=== PATIENT | female | born 1955 | race Caucasian/White ===

== ENCOUNTER → 2017-09-20 | Outpatient (CLI) | payer OTHER ==
[~2017-09-20] MED LIST: ACIDOPHILUS1 EAC3 PO; ALDACTONE25 MG PO; ASPIR 8181 MG PO; ASPIRIN325 PO; ATORVASTATIN CA40 MG PO; AUGMENTIN 875-1 EACH PO; AUGMENTIN 875875 MG PO; CARVEDILOL12.5 MG PO; CIPRO500 MG PO; D3 DOTS2000 UNIT PO; FISH OIL PO; FLAGYL500 MG PO; HUMALOG100 UNIT/2 SQ; HYDROCODONE-ACE15 ML PO; HYDROCODONE-AP1 EAC6 PO; KEFLEX500 M1 PO; LASIX 40 MG TAB40 M2 PO; LISINOPRIL10 MG PO; METFORMIN HCL500 MG PO; MIRALAX17 GM PO; NYSTATIN LIQUID PO; ONDANSETRON HCL4 M2 PO; PLAVIX 75 MG TA75 M1 PO; POTASSIUM20 PO; TRADJENTA5 MG; TRADJENTA5 MG PO; TYLENOL325 MG PO; VITAMIN D2000 UNIT PO; WELLBUTRIN SR150 MG PO; ZOFRAN ODT4 MG PO
== END ==
LOC: M.RAD 14:11
DX: M19.012 Primary osteoarthritis, left shoulder (principal); M19.011 Primary osteoarthritis, right shoulder; G89.29 Other chronic pain

== ENCOUNTER → 2017-11-02 | Outpatient (CLI) | payer OTHER | LOC: M.ULTRA 07:48 | DX: G45.9 Transient cerebral ischemic attack, unspecified (principal); R09.89 Other specified symptoms and signs involving the circulatory and respiratory systems ==

== ENCOUNTER → 2018-06-21 | Outpatient (CLI) | payer OTHER ==
--- NOTE | 2018-06-21 16:06 | 2DMMODE ---
[place] [address] 2 D/M-MODE ECHOCARDIOGRAM Name: ISAEL TIERNEY Room: [facility]#: [id number] Admission: 06/21/18 Attend Phys: Melissa Beard, Discharge: Date of : 53 Date of Service: 06/21/18 1606 Report #: [id number] THIS REPORT FOR: //name// APPROVED REPORT Study performed: 06/21/2018 09:33:25 EXAM: Comprehensive 2D, Doppler, and color-flow Echocardiogram Patient Location: Out-Patient BSA: 1.76 HR: 86 bpm BP: 100/65 mmHg Other Information Study Quality: Fair Indications Cardiomyopathy 2D Dimensions IVSd: 11.22 (7-11mm) LVOT Diam: 20.23 (18-24mm) LVDd: 45.26 mm PWd: 10.01 (7-11mm) Ascending Ao: 36.02 (22-36mm) LVDs: 35.28 (25-40mm) Aortic Root: 26.24 mm Volumes Left Atrial Volume (Systole) LA ESV Index: 20.30 mL/m2 Aortic Valve AoV Peak Mahin.: 1.00 m/s AO Peak Gr.: 3.97 mmHg LVOT Max P.11 mmHg AO Mean Gr.: 2.17 mmHg LVOT Mean P.11 mmHg LVOT Max V: 0.73 m/s AO V2 VTI: 15.12 cm LVOT Mean V: 0.49 m/s FABIENNE (VTI): 3.19 cm2 LVOT V1 VTI: 14.99 cm Mitral Valve MV Decel. Time: 146.53 ms MV PHT: 42.49 ms MVA (PHT): 5.18 [place] [address] 2 D/M-MODE ECHOCARDIOGRAM Name: ISAEL TIERNEY Room: [facility]#: [id number] Admission: 06/21/18 Attend Phys: Melissa Beard, Discharge: Date of : 53 Date of Service: 06/21/18 1606 Report #: [id number] Medial E' Mahin.: 0.16 m/s Lateral E' Mahin.: 0.09 m/s Pulmonary Valve PV Peak Mahin.: 0.80 m/s PV Peak Gr.: 2.56 mmHg Tricuspid Valve RAP Estimate: 5.00 mmHg TR Peak Gr.: 22.95 mmHg RVSP: 27.95 mmHg PA Pressure: 27.95 mmHg Left Ventricle The left ventricle is normal size. Regional wall motion abnormalities are noted with distal septal and anteroapical akinesis. There is normal left ventricular wall thickness. Left ventricular systolic function is moderately decreased. LVEF is 40%. Grade I - abnormal relaxation pattern. Right Ventricle The right ventricle is normal size. The right ventricular systolic function is normal. Device lead is present in the right ventricle. Atria The left atrium size is normal. The right atrium size is normal. Aortic Valve The aortic valve is normal in structure. No aortic regurgitation is present. There is no aortic valvular stenosis. Mitral Valve Mild mitral annular calcification. Mild mitral regurgitation. No evidence of mitral valve stenosis. Tricuspid Valve The tricuspid valve is normal in structure. There is no tricuspid valve regurgitation noted. Pulmonic Valve The pulmonary valve is normal in structure. Mild pulmonic regurgitation. Great Vessels The aortic root is normal in size. IVC is normal in size and collapses >50% [place] [address] 2 D/M-MODE ECHOCARDIOGRAM Name: ISAEL TIERNEY [id number] Admission: 06/21/18 Attend Phys: Melissa Beard, Discharge: Date of : 53 Date of Service: 06/21/18 1606 Report #: [id number] Pericardium There is no pericardial effusion. <Conclusion> The left ventricle is normal size. There is normal left ventricular wall thickness. Left ventricular systolic function is moderately decreased. LVEF is 40%. Grade I - abnormal relaxation pattern. The right ventricle is normal size. The left atrium size is normal. The aortic valve is normal in structure. Mild mitral annular calcification. Mild mitral regurgitation. No evidence of mitral valve stenosis. The tricuspid valve is normal in structure. IVC is normal in size and collapses >50% with inspiration. There is no pericardial effusion. Regional wall motion abnormalities are noted with distal septal and anteroapical akinesis. <ELECTRONICALLY SIGNED> By: Albert Sanchez MD, [facility] 06/21/18 1606 1606 1606 Albert Sanchez MD, FACC /INF
== END ==
LOC: M.CRD 06-08 09:00
DX: I25.5 Ischemic cardiomyopathy (principal); I35.8 Other nonrheumatic aortic valve disorders; I34.0 Nonrheumatic mitral (valve) insufficiency; I37.1 Nonrheumatic pulmonary valve insufficiency; Z95.811 Presence of heart assist device

== ENCOUNTER 2019-02-17 13:24 | Inpatient (IN) | payer MEDICAID ==
[~2019-02-17] VITALS: Ht 152.4 cm; Wt 75.3 kg
[~2019-02-17 13:24] MED LIST changes: -ATORVASTATIN CA40 MG PO; +LIPITOR40 MG PO; +VITAMIN D 2000 UNIT PO; -VITAMIN D2000 UNIT PO
[2019-02-17 14:05] VITALS: BP 109/63
[2019-02-17 14:26] LABS: URINE BILIRUBIN NEGATIVE (Negative); URINE BLOOD NEGATIVE (Negative); URINE CLARITY CLEAR; URINE COLOR YELLOW; URINE GLUCOSE-RANDOM NEGATIVE (Negative); URINE KETONES NEGATIVE (Negative); URINE LEUKOCYTES-REFLEX 1+ (Negative); URINE NITRITE-REFLEX NEGATIVE (Negative); URINE PROTEIN NEGATIVE (Negative); URINE SPECIFIC GRAVITY 1.025 (1.005-1.030); URINE UROBILINOGEN 0.2 E.U./dl (0.2-1.0)
[2019-02-17 14:43] LABS: RENAL EPITHELIAL CELLS 4-10 Moderate /LPF (None Seen); SQUAMOUS >10 Many /LPF (0-3)
[2019-02-17 14:44] LABS: BACTERIA-REFLEX 1-9 Few /HPF (None Seen); MUCUS None Seen strn/LPF (None Seen); URINE RBC None Seen /HPF (0-2); URINE WBC-REFLEX 6-15 Few /HPF (0-5)
[2019-02-17 14:45] LABS: CRYSTALS None Seen /LPF (None Seen); HYALINE CASTS >10 Many /LPF (None Seen)
[2019-02-17 14:46] LABS: ABSOLUTE BASOPHILS 0.1 thou/uL (0.0-0.2); ABSOLUTE EOSINOPHILS 0.3 thou/uL (0.0-0.7); ABSOLUTE LYMPHOCYTES 2.2 thou/uL (0.8-5.3); ABSOLUTE MONOCYTES 0.3 thou/uL (0.0-1.2); ABSOLUTE NEUTROPHILS 3.4 thou/uL (1.6-8.1); BASOPHILS 0.8 %; EOSINOPHILS 4.9 %; HEMATOCRIT 35.8 % (37.0-47.0); HEMOGLOBIN 12.5 gm/dL (12.0-15.0); LYMPHOCYTES 34.5 %; MCH 34.6 pg (26.0-34.0); MCHC 35.1 g/dL (28.0-37.0); MCV 98.7 fL (80.0-100.0); MONOCYTES 5.1 %; NUCLEATED RBCS 0 /100WBC; PLATELET COUNT* 202 thou/uL (150-400); POLYS 54.7 %; RBC 3.62 mil/uL (4.20-5.00); RDW-CV 14.5 % (10.5-14.5); WBC 6.3 thou/uL (4.0-11.0)
[2019-02-17 14:56] LABS: CALCIUM 9.7 mg/dL (8.5-10.1); CREATININE 2.1 mg/dL (0.6-1.3)
[2019-02-17 15:00] LABS: ALBUMIN 4.8 g/dL (3.4-5.0); TOTAL BILIRUBIN 0.8 mg/dL (<0.1-1.0); TOTAL PROTEIN 8.4 g/dL (6.4-8.2)
--- NOTE | 2019-02-17 19:00 | NUR ---
REPORT GIVEN TO KELLIE PAUL WHO IS TO ASSUME PT CARE AT THIS TIME.
[2019-02-17 20:00] VITALS: BP 113/63; BP 120/69
[2019-02-17] MEDS ORDERED: BUPROPION XL300 MG PO (21:22)
[2019-02-17] MEDS ORDERED: METFORMIN HCL500 M3 PO (21:25)
[2019-02-17] MEDS ORDERED: SPIRONOLACTONE25 MG PO (21:27)
[2019-02-17] MEDS ORDERED: FISH OIL 1,001000 M3 PO (21:28)
[2019-02-18 08:20] VITALS: BP 96/96
[2019-02-18 10:06] LABS: ABSOLUTE EOSINOPHILS 0.2 thou/uL (0.0-0.7); ABSOLUTE LYMPHOCYTES 1.5 thou/uL (0.8-5.3); ABSOLUTE MONOCYTES 0.2 thou/uL (0.0-1.2); ABSOLUTE NEUTROPHILS 2.8 thou/uL (1.6-8.1); BASOPHILS 0.7 %; HEMATOCRIT 28.6 % (37.0-47.0); LYMPHOCYTES 30.9 %; MCH 35.1 pg (26.0-34.0); MCHC 35.3 g/dL (28.0-37.0); MCV 99.3 fL (80.0-100.0); MONOCYTES 5.1 %; MPV 7.4 fl. (7.2-11.1); NUCLEATED RBCS 0 /100WBC; PLATELET COUNT* 146 thou/uL (150-400); POLYS 58.3 %; RBC 2.88 mil/uL (4.20-5.00); WBC 4.8 thou/uL (4.0-11.0)
[2019-02-18 10:13] LABS: CALCIUM 8.8 mg/dL (8.5-10.1); CREATININE 1.5 mg/dL (0.6-1.3); POTASSIUM 3.5 mmol/L (3.5-5.1)
[2019-02-18 10:14] LABS: HEMOGLOBIN 10.1 gm/dL (12.0-15.0)
[2019-02-18] MEDS ORDERED: METFORMIN HCL1000 MG PO (13:33)
--- NOTE | 2019-02-18 18:56 | NUR ---
PATIENT AMBULATING TO BATHROOM AND COMMODE THROUGHOUT SHIFT. PATIENT HAD MULTIPLE LOOSE BMS. PATIENT DENIES NAUSEA. PATIENT DENIES FURTHER NEEDS AT THIS TIME. ALL SAFETY MEASURES MAINTAINED.
[2019-02-18 20:00] VITALS: BP 111/74
--- NOTE | 2019-02-19 03:31 | NUR ---
ASSUMED PT CARE AT APPROX 1930. PT IS AWAKE AND ORIENTED X4. VSS ON ROOM AIR. ASSESSMENT DONE AND CHARTED. PT DENIES NAUSEA/VOMITING/PAIN,REPORTS TO HAVE HAD 8-10 LOOSE BOWEL MOVEMENTS THROUGHOUT THE DAY. ENCOURAGED FLUID INTAKE FOR REHYDRATION, KEPT IV FLUIDS INFUSING ORDERED. PT IS ABLE TO SLEEP MOST OF THE NIGHT. CALL LIGHT WITHIN REACH. WILL CONTINUE TO MONITOR PT.
[2019-02-19 04:28] LABS: HEMATOCRIT 26.4 % (37.0-47.0); HEMOGLOBIN 9.2 gm/dL (12.0-15.0); MCH 34.9 pg (26.0-34.0); MCV 99.9 fL (80.0-100.0); MPV 8.1 fl. (7.2-11.1); RBC 2.64 mil/uL (4.20-5.00); RDW-CV 14.5 % (10.5-14.5); WBC 4.3 thou/uL (4.0-11.0)
[2019-02-19 04:52] LABS: ALBUMIN 3.3 g/dL (3.4-5.0); CALCIUM 8.7 mg/dL (8.5-10.1); CREATININE 1.5 mg/dL (0.6-1.3); MAGNESIUM 1.4 mg/dL (1.8-2.4); POTASSIUM 3.6 mmol/L (3.5-5.1); TOTAL BILIRUBIN 0.4 mg/dL (<0.1-1.0)
[2019-02-19 07:25] VITALS: BP 97/63
[2019-02-19 15:50] VITALS: BP 101/59
--- NOTE | 2019-02-19 17:43 | NUR ---
PATIENT AWAKE IN BED. PATIENT AMBULATING AD KRYSTIN THROUGHOUT SHIFT. PATIENT REPORTS IMPROVEMENT IN [place] THIS EVENING. ALL SAFETY MEASURES MAINTAINED. PATIENT DENIES FURTHER NEEDS AT THIS TIME.
[2019-02-20 04:38] LABS: HEMATOCRIT 26.1 % (37.0-47.0); HEMOGLOBIN 8.9 gm/dL (12.0-15.0); MCHC 34.2 g/dL (28.0-37.0); MCV 99.3 fL (80.0-100.0); RBC 2.63 mil/uL (4.20-5.00); RDW-CV 14.2 % (10.5-14.5); WBC 5.1 thou/uL (4.0-11.0)
[2019-02-20 04:42] VITALS: BP 105/69
[2019-02-20 05:03] LABS: ALBUMIN 3.1 g/dL (3.4-5.0); CALCIUM 8.4 mg/dL (8.5-10.1); CREATININE 1.7 mg/dL (0.6-1.3); MAGNESIUM 1.6 mg/dL (1.8-2.4); POTASSIUM 3.9 mmol/L (3.5-5.1); TOTAL BILIRUBIN 0.3 mg/dL (<0.1-1.0); TOTAL PROTEIN 5.7 g/dL (6.4-8.2)
--- NOTE | 2019-02-20 06:00 | NUR ---
PATIENT SLEPT WELL DURING THIS SHIFT. PT SAID SHE HAD TWO SMALL LOOSE STOOLS DURING THIS SHIFT. PT UP AD KRYSTIN TO BATHROOM WITH STEADY GAIT. FLUIDS INFUSING PER DR ORDER. PT DENIES PAIN/NAUSEA. FREQUENTLY USED ITEMS AND CALL LIGHT WITHIN REACH. SIDERAILS UPX2. WILL CONTINUE TO MONITOR.
[2019-02-20 08:00] VITALS: BP 102/59
[2019-02-20 16:05] VITALS: BP 95/56
--- NOTE | 2019-02-20 16:39 | NUR ---
PATIENT AMBULATING INDEPENDENTLY. IV SL THIS SHIFT. NO COMPLAINTS OF PAIN. PATIENT DID C/O INDIGESTION THIS EVENING, PRN MYLANTA GIVEN AND SCHED PROTONIX ORDERED. NO STOOLS NOTED THIS SHIFT, LOMOTIL HELD. DR. ADAMS NOTIFIED OF BP THIS AM, COREG AND SPIRLACTOLONE CHANGED TO DAILY. POSSIBLE DISCHARGE TOMORROW.
--- NOTE | 2019-02-20 17:19 | NUR ---
SW met with pt to complete initial assessment, introduce self, and SW role. Pt lives at home alone and is independent with mobility and ADLs. Pt has a son who lives nearby and is supportive. Pt has hx with [facility]. Pt does not anticipate any dc needs and pt expecting to be a able to dc home tomorrow.
[2019-02-20 21:06] VITALS: BP 113/65
[2019-02-21 04:42] LABS: HEMATOCRIT 27.6 % (37.0-47.0); HEMOGLOBIN 9.3 gm/dL (12.0-15.0); MCHC 33.7 g/dL (28.0-37.0); MCV 100.9 fL (80.0-100.0); MPV 8.1 fl. (7.2-11.1); RBC 2.74 mil/uL (4.20-5.00); RDW-CV 14.2 % (10.5-14.5); WBC 4.9 thou/uL (4.0-11.0)
[2019-02-21 04:54] LABS: CALCIUM 8.8 mg/dL (8.5-10.1); CREATININE 1.4 mg/dL (0.6-1.3); MAGNESIUM 1.6 mg/dL (1.8-2.4)
--- NOTE | 2019-02-21 06:30 | NUR ---
PT SLEPT OFF AND ON OVERNIGHT SHE STATES. HAS HAD 2 LOOSE STOOLS, SMALL AND CONTROLLABLE SHE STATES SINCE AWAKENING THIS MORNING. LFA SL. LOMOTIL GIVEN PER PT REQUEST. AM LABS DRAWN, PO MAG GIVEN. HS ACCUCHECK 122, NO INSULIN INDICATED. UP TO BATHROOM INDEP WITHOUT DIFFICULTY. ANTICIPATING DISCHARGE HOME TODAY. ABLE TO USE CALL LITE AND MAKE NEEDS KNOWN.
[2019-02-21 07:35] VITALS: BP 120/69
[2019-02-21] MEDS ORDERED: KEFLEX500 M1 PO (09:38)
[2019-02-21] MEDS ORDERED: CARVEDILOL12.5 MG PO (09:38)
[2019-02-21] MEDS ORDERED: SPIRONOLACTONE25 MG PO (09:38)
[2019-02-21] MEDS ORDERED: ACIDOPHILUS1 EAC4 PO (09:38)
[2019-02-21] MEDS ORDERED: LOMOTIL TABLET1 EACH PO (09:38)
[2019-02-21 11:08] VITALS: BP 120/69
--- NOTE | 2019-02-21 12:16 | NUR ---
PT A&OX4 VSS. PT IV DC'D PRIOR TO LEAVING UNIT. NO REDNESS/SWELLING/BLEEDING AT SITE. PT DENIES PAIN AT THIS TIME. PT STATES UNDERSTANDING OF DC INSTRUCTIONS AND RX PROVIDED. PT DRESSED INDEPENDENTLY, NO DIFFICULTY. PT UP AD KRYSTIN, GAIT STEADY. PT LEAVES UNIT IN WC WITH ALL PERSONAL BELONGINGS. DGTR TO DRIVE PT HOME.
== END 2019-02-21 12:20 | disposition home or self-care (01) | DRG 391 ==
LOC: M.ERS 13:24 → M.3W 16:40 → M.TBA-ER 16:40 → M.3W 20:03
PROVIDERS: Internal Medicine; Physician Assistant; ADMIT Internal Medicine
DX: A08.4 Viral intestinal infection, unspecified (principal); N17.0 Acute kidney failure with tubular necrosis; N39.0 Urinary tract infection, site not specified; E11.9 Type 2 diabetes mellitus without complications; K57.90 Diverticulosis of intestine, part unspecified, without perforation or abscess without bleeding; E86.0 Dehydration; B95.1 Streptococcus, group B, as the cause of diseases classified elsewhere; Z53.29 Procedure and treatment not carried out because of patient's decision for other reasons; I25.2 Old myocardial infarction; Z87.442 Personal history of urinary calculi; Z90.49 Acquired absence of other specified parts of digestive tract; Z79.899 Other long term (current) drug therapy; Z79.82 Long term (current) use of aspirin; Z79.4 Long term (current) use of insulin; Z88.6 Allergy status to analgesic agent; Z88.8 Allergy status to other drugs, medicaments and biological substances; Z91.041 Radiographic dye allergy status; Z82.49 Family history of ischemic heart disease and other diseases of the circulatory system; Z80.41 Family history of malignant neoplasm of ovary; Z87.891 Personal history of nicotine dependence

== ENCOUNTER 2019-02-22 15:42 | Observation (INO) | payer MEDICAID ==
[~2019-02-22] VITALS: Ht 152.4 cm; Wt 76.0 kg
[~2019-02-22 15:42] MED LIST changes: +ACIDOPHILUS1 EAC4 PO; +BUPROPION XL300 MG PO; +FISH OIL 1,001000 M3 PO; +LOMOTIL TABLET1 EACH PO; +METFORMIN HCL1000 MG PO; +METFORMIN HCL500 M3 PO; +SPIRONOLACTONE25 MG PO
[2019-02-22 16:06] VITALS: BP 130/83
[2019-02-22 17:19] LABS: ABSOLUTE BASOPHILS 0.1 thou/uL (0.0-0.2); ABSOLUTE EOSINOPHILS 0.4 thou/uL (0.0-0.7); ABSOLUTE LYMPHOCYTES 2.1 thou/uL (0.8-5.3); ABSOLUTE MONOCYTES 0.3 thou/uL (0.0-1.2); BASOPHILS 0.9 %; EOSINOPHILS 7.5 %; HEMATOCRIT 29.4 % (37.0-47.0); HEMOGLOBIN 10.3 gm/dL (12.0-15.0); LYMPHOCYTES 35.9 %; MCH 34.8 pg (26.0-34.0); MCHC 34.9 g/dL (28.0-37.0); MCV 99.9 fL (80.0-100.0); MONOCYTES 5.7 %; MPV 7.4 fl. (7.2-11.1); NUCLEATED RBCS 0 /100WBC; PLATELET COUNT* 178 thou/uL (150-400); RBC 2.95 mil/uL (4.20-5.00); RDW-CV 13.9 % (10.5-14.5); WBC 5.9 thou/uL (4.0-11.0)
[2019-02-22 17:30] LABS: CALCIUM 9.1 mg/dL (8.5-10.1); POTASSIUM 3.6 mmol/L (3.5-5.1)
[2019-02-22 17:41] LABS: ALBUMIN 4.1 g/dL (3.4-5.0); TOTAL BILIRUBIN 0.4 mg/dL (<0.1-1.0); TOTAL PROTEIN 7.2 g/dL (6.4-8.2)
[2019-02-22 18:09] LABS: URINE BILIRUBIN NEGATIVE (Negative); URINE BLOOD NEGATIVE (Negative); URINE CLARITY CLEAR; URINE COLOR YELLOW; URINE GLUCOSE-RANDOM NEGATIVE (Negative); URINE KETONES NEGATIVE (Negative); URINE LEUKOCYTES-REFLEX NEGATIVE (Negative); URINE NITRITE-REFLEX NEGATIVE (Negative); URINE PROTEIN NEGATIVE (Negative); URINE UROBILINOGEN 0.2 E.U./dl (0.2-1.0)
[2019-02-22 18:13] LABS: INFLUENZA A ANTIGEN Negative (Negative); INFLUENZA B ANTIGEN Negative (Negative)
[2019-02-22 20:36] VITALS: BP 130/71
[2019-02-23] VITALS (7 sets, daily range): BP systolic 98–185; BP diastolic 55–71
--- NOTE | 2019-02-23 06:00 | NUR ---
REPORT RECIVED FROM ED. PT ARRIVED TO ROOM PER CART @ 2054. SLIGHT UNSTEADY GAIT. PER TRIAGE NOTE PT WAS DX WITH FLU. CALLED LAB AND FLU TEST WAS NEGATIVE FROM THIS VISIT AND NO FLU TESTING DISCOVERED ON PT'S LAST HOSPITAL ADMISSION 02/17/19. PT REPORTED RIGHT ARM/SHOULDER WEAKNESS AND "NOT FEELING RIGHT TODAY." PT CAME TO HOSPITAL B/C "STEPH HAD 8 HEART ATTACKS AND I JUST WANTED TO MAKE SURE EVERYTHING WAS OKAY." PT DENIED CHEST PAIN AND DENIED PAIN THROUGHOUT SHIFT. NPO AFTER MIDNIGHT FOR CARDIOLOGY CONSULT. CALL LIGHT IN REACH. HOURLY ROUNDING FOR SAFETY.
--- NOTE | 2019-02-23 10:35 | NUR ---
INITIAL ASSESSMENT: Pt evaluated for d/c planning needs. Reviewed chart and spoke with nurse, pt and pt's daughter. Pt is alert and oriented. Pt lives alone in apartment and was independent with ADL's prior to admission to the hospital. Pt's daughter lives in [place]. Pt was recently discharged from the hospital with prescription for oral antibiotics. Pt did not fill prescription. Pt said she had adequate funds to pay for it, but was re-hospitalized before going to the pharmacy. Pt said she has been on Social Security disability for over 2 years. Asked if she had applied for Medicare. Pt said she has paperwork at home to apply and will look at it when she gets home. Pt plans on returning home on d/c from hospital. Will remain available to assist as needed.
--- NOTE | 2019-02-23 11:06 | EKG ---
[place] [address] ELECTROCARDIOGRAM REPORT Name: ISAEL TIERNEY Room: [address] M.R.#: [id number] Admission: 02/22/19 Attend Phys: Mansoor Weeks MD Discharge: Date of : 53 Report #: [id number] THIS REPORT FOR: //name// [facility] ED Test Date: 2019-02-22 Test Time: 16:17:13 Pat Name: ISAEL TIERNEY Department: Room: [facility] Gender: F Package Sorter: JENNIFER : 1955 Requested By: Geeta Hamlin Order Number: [id number] MD: Ankush Schuler Measurements Intervals [place] Rate: 74 P: 31 RI: 176 QRS: -40 QRSD: 92 T: 74 QT: 399 QTc: 443 Interpretive Statements Sinus rhythm Left axis deviation Probable anteroseptal infarct, old Baseline wander in lead(s) II Compared to ECG 07/13/2017 12:39:41 No significant changes Electronically Signed On 02-23-2019 11:06:14 GASKET SUPERVISOR by Ankush Schuler [email or web address] <ELECTRONICALLY SIGNED> By: Ankush Schuler MD, FACC 02/23/19 1106 1617 1617 Ankush Schuler MD, FAC /EPI
--- NOTE | 2019-02-23 18:12 | NUR ---
PT A&O X4. FEELS BETTER, DENIES LIGHT HEADEDNESS OR PAIN. VSS. UP AD KRYSTIN. TOLERATING DIET. PROGRESSING TOWARDS GOAL. POSSIBLE DISCHARGE TOMORROW.
[2019-02-24 00:30] VITALS: BP 90/53
[2019-02-24 01:01] LABS: CALCIUM 9.2 mg/dL (8.5-10.1); CREATININE 2.1 mg/dL (0.6-1.3); POTASSIUM 3.5 mmol/L (3.5-5.1)
[2019-02-24 04:00] VITALS: BP 99/56
--- NOTE | 2019-02-24 06:40 | NUR ---
PT DENIED PAIN OR DISCOMFORT DURING SHIFT. MAP > 65 DURING SHIFT, BLOOD PRESSURE 90/50 RANGE. ACCU CHECK AT 2100 119. HEART RATE 60-70'S, NORMAL SINUS RHYTHM ON MONITOR. NO SHORTNESS OF AIR, LIGHT HEADEDNESS OR VERTIGO DURING SHIFT. RECIEVED CALL FROM BOBBY THOMPSON REGARDING PT'S KIDNEY FUNCTION THIS AM. ORDER RECIEVED TO INFUSE 500 ML NORMAL SALINE AT 200 ML/HR.
[2019-02-24 07:40] VITALS: BP 99/63
[2019-02-24 11:35] VITALS: BP 92/69
[2019-02-24 12:00] VITALS: BP 84/51
[2019-02-24 12:51] VITALS: BP 84/51
[2019-02-24 13:21] LABS: CALCIUM 9.4 mg/dL (8.5-10.1); CREATININE 1.9 mg/dL (0.6-1.3); POTASSIUM 3.7 mmol/L (3.5-5.1)
--- NOTE | 2019-02-24 14:01 | NUR ---
DC'D VIA WC WITH HOSPITAL STAFF TO HOME. PT DISCUSSED IF SHE WANTED A CONSULT FOR RENAL AND HAD A DISCUSSION WITH DR FUENTES REGARDING HER STATUS AND HER CARE MOVING FORWARD. PT AGREEABLE TO DC TODAY WITH OUT CONSULT TO RENAL. PT IV REMOVED INTACT. ONE RX PROVIDED. WILL CALL REGARDING REQUEST FROM BOBBY LANDRY TO HAVE FOLLOW UP LABS AND FOLLOW UP APPOINTMENT. WILL CALL PT AT HOME TO UPDATE REGARDING THIS INFORMATION
--- NOTE | 2019-02-24 14:09 | NUR ---
CALLED AND LEFT MESSAGE WITH SHIRA VINCENT REGARDING APPOINTMENT WITH [facility] AND A FOLLOW UP LAB NEEDED. WILL SIGN OFF AT THIS TIME
== END 2019-02-24 13:20 | disposition home or self-care (01) ==
LOC: M.ERS 15:42 → M.TBA-ER 20:09 → M.2W 20:09
PROVIDERS: Nurse Practitioner Family; Registered Nurse; ADMIT Internal Medicine
DX: N17.9 Acute kidney failure, unspecified (principal); E11.9 Type 2 diabetes mellitus without complications; E86.0 Dehydration; R19.7 Diarrhea, unspecified; K57.92 Diverticulitis of intestine, part unspecified, without perforation or abscess without bleeding; I25.10 Atherosclerotic heart disease of native coronary artery without angina pectoris; I10 Essential (primary) hypertension; I42.8 Other cardiomyopathies; E78.5 Hyperlipidemia, unspecified; Z95.5 Presence of coronary angioplasty implant and graft; Z79.01 Long term (current) use of anticoagulants; Z79.82 Long term (current) use of aspirin; Z79.899 Other long term (current) drug therapy; Z87.891 Personal history of nicotine dependence

== ENCOUNTER → 2019-03-03 | Outpatient (CLI) | payer MEDICAID ==
[2019-03-03 12:10] LABS: CREATININE 1.8 mg/dL (0.6-1.3); POTASSIUM 4.3 mmol/L (3.5-5.1)
== END ==
LOC: M.LAB 11:41
PROVIDERS: Registered Nurse
DX: I25.5 Ischemic cardiomyopathy (principal)

== ENCOUNTER → 2019-09-04 | Outpatient (CLI) | payer MEDICARE, MEDICAID | LOC: M.ULTRA 08-30 13:29 | DX: K76.0 Fatty (change of) liver, not elsewhere classified (principal); N28.1 Cyst of kidney, acquired; R16.2 Hepatomegaly with splenomegaly, not elsewhere classified; I70.1 Atherosclerosis of renal artery; N28.89 Other specified disorders of kidney and ureter ==